=== PATIENT | male | born 1955 | race Caucasian/White ===

== ENCOUNTER 2018-02-07 19:01 | Inpatient (IN) | payer MEDICARE ==
[~2018-02-07] VITALS: Ht 174 cm; Wt 83.4 kg
[~2018-02-07 19:01] MED LIST: HYDR25TA6 PO; POTA20PA PO; SIMV40TA3 PO; WARF-36 PO
[2018-02-07] MEDS ORDERED: HYDR12.547 PO (19:29)
[2018-02-07] MEDS ORDERED: WARFARIN PO (19:29)
[2018-02-07] MEDS ORDERED: POTA10TA11 PO (19:30)
[2018-02-07] MEDS ORDERED: SPIRIVA PO (19:32)
[2018-02-07 19:58] LABS: MEAN CORPUSCULAR HEMOGLOBIN 30.5 pg (27.5-34.5); MEAN CORPUSCULAR HGB CONC 33.8 g/dL (33.2-36.2); MEAN CORPUSCULAR VOLUME 90.4 fL (81-97); MEAN PLATELET VOLUME 8.1 fL (7.4-10.4); PLATELET COUNT 234 x10^3/uL (130-400); RED BLOOD COUNT 4.49 x10^6/uL (4.38-5.82); RED CELL DISTRIBUTION WIDTH 16.2 % (9.4-14.8)
[2018-02-07] MEDS ORDERED: SODIUM CHLORIDE FLUSH 10ML SYR IVF ONE (20:00)
[2018-02-07] MEDS ORDERED: SODIUM CHLORIDE 0.9% 1,000ML IVBOLUS ONE ×2 (20:00→21:00)
[2018-02-07 20:10] LABS: ALANINE AMINOTRANSFERASE 46 U/L (12-78); ALBUMIN 2.9 g/dL (3.4-5.0); ANION GAP 11 mmol/L (5-15); CALCIUM 8.9 mg/dL (8.5-10.1); CHLORIDE 94 mmol/L (98-107); CREATININE 1.89 mg/dL (0.7-1.3)
[2018-02-07 20:12] LABS: ALKALINE PHOSPHATASE 89 U/L (45-117); BILIRUBIN,TOTAL 1.2 mg/dL (0.2-1.0); TOTAL PROTEIN 8.1 g/dL (6.4-8.2)
[2018-02-07 20:14] LABS: INTERNATIONAL NORMALIZED RATIO 2.6 (0.93-1.1); PROTHROMBIN TIME 26.5 Seconds (9.6-11.5)
[2018-02-07 20:52] LABS: MD YES
[2018-02-07 20:54] LABS: BANDS%(MANUAL) 2 % (0-7); EOS#(MANUAL) 0.15 x10^3/uL (0.0-0.4); EOS% (MANUAL) 1 % (1-7); LYMPH#(MANUAL) 1.04 x10^3/uL (1-3.4); LYMPHS% (MANUAL) 7 % (22-44); MONOS#(MANUAL) 0.75 x10^3/uL (0.3-2.7); MONOS% (MANUAL) 5 % (2-9); MYELOCYTES% (MANUAL) 2 % (0-0); SEG#(MANUAL) 12.37 x10^3/uL (1.8-6.8); SEGS% (MANUAL) 83 % (42-75)
[2018-02-07 20:55] LABS: <PLATELET ESTIMATE> ADEQUATE; <PLT MORPHOLOGY> NORMAL PLT MORPH; ANISOCYTOSIS 1+
[2018-02-07] MEDS ORDERED: VANCOMYCIN PER PHARMACY MC PRN (21:00)
[2018-02-07] MEDS ORDERED: AMPICILLIN/SULBACTAM 3 GM in SODIUM CHLORIDE 0.9% 100 ML IV ONE (21:00)
[2018-02-07] MEDS ORDERED: VANCOMYCIN 1,600 MG in SODIUM CHLORIDE 0.9% 250 ML IV ONE (21:00)
[2018-02-07 21:20] LABS: MICROSCOPIC INDICATED
[2018-02-07 21:22] LABS: CULTURE INDICATED? NO
[2018-02-07] MEDS ORDERED: POTASSIUM CHLORIDE 20 MEQ TAB.ER.PRT PO ONE (21:30)
[2018-02-07] MEDS ORDERED: POTASSIUM CHLORIDE 20 MEQ TAB.ER.PRT ONE (22:04)
[2018-02-07] MEDS ORDERED: PHARMACOKINETIC MONITORING MC PRN (22:30)
[2018-02-07] MEDS ORDERED: LABETALOL 5MG/ML, 20ML IVPush PRN (22:30)
[2018-02-07] MEDS ORDERED: BISACODYL 10 MG SUPP PR PRN (22:30)
[2018-02-07] MEDS ORDERED: DOCUSATE 100 MG CAPSULE PO PRN (22:30)
[2018-02-07] MEDS ORDERED: PHARMACOKINETIC CONSULTATION MC ONE (22:30)
[2018-02-07] MEDS ORDERED: ONDANSETRON ODT 4 MG PO PRN (22:30)
[2018-02-07] MEDS ORDERED: ONDANSETRON 2MG/ML, 2ML IVPush PRN (22:30)
[2018-02-07] MEDS ORDERED: ACETAMINOPHEN 325 MG TABLET PO PRN (22:30)
[2018-02-07 22:39] VITALS: BP 120/73
[2018-02-07 23:24] LABS: HCT (SEDRATE) 38.7 % (39.2-51.8)
[2018-02-07] MEDS ORDERED: WARFARIN 2 MG TABLET PO-COUM ONE (23:30)
[2018-02-07] MEDS: SODIUM CHLORIDE 0.9% 1,000 ML IV SCH (23:36)
[2018-02-07 23:51] VITALS: BP 123/68
[2018-02-08] MEDS: HYDROcodone/APAP 5/325 TABLET PO PRN ×2 (00:34→01:51)
[2018-02-08 00:36] VITALS: BP 123/68
[2018-02-08] MEDS ORDERED: METOPROLOL 1 MG/ML, 5ML IVPush PRN (01:30)
[2018-02-08] MEDS: AMPICILLIN/SULBACTAM 3 GM in SODIUM CHLORIDE 0.9% 100 ML IV SCH ×3 (05:21→21:56)
[2018-02-08 05:41] LABS: MEAN CORPUSCULAR HEMOGLOBIN 30.5 pg (27.5-34.5); MEAN CORPUSCULAR HGB CONC 33.7 g/dL (33.2-36.2); MEAN CORPUSCULAR VOLUME 90.5 fL (81-97); MEAN PLATELET VOLUME 8.3 fL (7.4-10.4); PLATELET COUNT 223 x10^3/uL (130-400); RED BLOOD COUNT 4.57 x10^6/uL (4.38-5.82); RED CELL DISTRIBUTION WIDTH 15.9 % (9.4-14.8)
[2018-02-08 05:48] LABS: CHLORIDE 101 mmol/L (98-107)
[2018-02-08 06:00] LABS: ANION GAP 11 mmol/L (5-15); CALCIUM 8.3 mg/dL (8.5-10.1); CHOL/HDL RATIO 7.8; CHOLESTEROL, TOTAL 78 mg/dL (140-239); CREATININE 1.55 mg/dL (0.7-1.3); HDL CHOL % 13 % (26-37); HDL CHOLESTEROL (DIRECT) 10 mg/dL (40-60); LDL CHOLESTEROL,CALCULATED 38 mg/dL (54-169); LDL/HDL RATIO 3.8 (0.5-3.0); TRIGLYCERIDES 148 mg/dL (50-200); VLDL CHOLESTEROL 30 mg/dL (0-25)
[2018-02-08 06:13] LABS: INTERNATIONAL NORMALIZED RATIO 3.02 (0.93-1.1); PROTHROMBIN TIME 30.7 Seconds (9.6-11.5)
[2018-02-08 06:23] LABS: BASOPHILS # (AUTO) 0.05 x10^3/uL (0-0.1); BASOPHILS % (AUTO) 0 % (0-1); EOSINOPHILS # (AUTO) 0.02 x10^3/uL (0-0.4); EOSINOPHILS % (AUTO) 0 % (1-7); LYMPHOCYTES # (AUTO) 1.08 x10^3/uL (1-3.4); LYMPHOCYTES % (AUTO) 7 % (22-44); MD SCAN; MONOCYTES # (AUTO) 1.09 x10^3/uL (0.2-0.8); MONOCYTES % (AUTO) 7 % (2-9); NEUTROPHILS % (AUTO) 86 % (42-75)
[2018-02-08 07:49] VITALS: BP 102/66
[2018-02-08] MEDS ORDERED: HYDROCHLOROTHIAZIDE 25 MG TABLET PO SCH (09:00)
[2018-02-08] MEDS: POTASSIUM CHLORIDE 10 MEQ TABLET.ER PO SCH (09:42)
[2018-02-08] MEDS: POTASSIUM CHLORIDE 20 MEQ TAB.ER.PRT PO SCH ×2 (09:42→12:45)
[2018-02-08] MEDS: SENNA/DOCUSATE TABLET PO SCH (09:43)
[2018-02-08] MEDS: IPRATROPIUM 0.5 MG/2.5 ML INHA NPPB SCH ×2 (11:30→14:45)
[2018-02-08] MEDS: SODIUM CHLORIDE 0.9% 1,000 ML IV SCH ×2 (12:39→23:33)
[2018-02-08 13:57] VITALS: BP 98/62
[2018-02-08 14:06] VITALS: BP 96/59
[2018-02-08] MEDS ORDERED: ALBUTEROL SULFATE 2.5MG/0.5ML ONE (14:50)
[2018-02-08] MEDS ORDERED: WARFARIN 3 MG TABLET PO-COUM ONE (18:00)
[2018-02-08 19:32] VITALS: BP 100/65
[2018-02-08] MEDS: ALBUTEROL/IPRATROPIUM 2.5MG/0.5MG, 3 ML NPPB SCH (20:20)
[2018-02-08] MEDS ORDERED: VANCOMYCIN PER PHARMACY MC PRN (21:00)
[2018-02-08] MEDS: SIMVASTATIN 40 MG TABLET PO SCH (21:56)
[2018-02-08] MEDS: VANCOMYCIN 1,600 MG in SODIUM CHLORIDE 0.9% 250 ML IV SCH (23:32)
[2018-02-09 01:02] VITALS: BP 110/56
[2018-02-09 04:59] LABS: MEAN CORPUSCULAR HEMOGLOBIN 30.6 pg (27.5-34.5); PLATELET COUNT 186 x10^3/uL (130-400); RED BLOOD COUNT 3.86 x10^6/uL (4.38-5.82); RED CELL DISTRIBUTION WIDTH 16.6 % (9.4-14.8)
[2018-02-09 05:07] LABS: ANION GAP 7 mmol/L (5-15); CHLORIDE 103 mmol/L (98-107)
[2018-02-09 05:08] LABS: CREATININE 1.24 mg/dL (0.7-1.3)
[2018-02-09 05:10] LABS: INTERNATIONAL NORMALIZED RATIO 3.49 (0.93-1.1); PROTHROMBIN TIME 35.4 Seconds (9.6-11.5)
[2018-02-09 06:03] LABS: BASOPHILS # (AUTO) 0.03 x10^3/uL (0-0.1); BASOPHILS % (AUTO) 0 % (0-1); EOSINOPHILS # (AUTO) 0.08 x10^3/uL (0-0.4); EOSINOPHILS % (AUTO) 1 % (1-7); LYMPHOCYTES # (AUTO) 0.94 x10^3/uL (1-3.4); LYMPHOCYTES % (AUTO) 6 % (22-44); MD SCAN; MONOCYTES # (AUTO) 0.88 x10^3/uL (0.2-0.8); MONOCYTES % (AUTO) 6 % (2-9); NEUTROPHILS # (AUTO) 13.99 x10^3/uL (1.8-6.8); NEUTROPHILS % (AUTO) 88 % (42-75)
[2018-02-09] MEDS: AMPICILLIN/SULBACTAM 3 GM in SODIUM CHLORIDE 0.9% 100 ML IV SCH ×3 (06:25→22:14)
[2018-02-09] MEDS: ALBUTEROL/IPRATROPIUM 2.5MG/0.5MG, 3 ML NPPB SCH ×4 (06:55→20:10)
[2018-02-09 07:28] VITALS: BP 103/64
[2018-02-09] MEDS ORDERED: VANCOMYCIN 1,600 MG in SODIUM CHLORIDE 0.9% 250 ML IV SCH (09:00)
[2018-02-09] MEDS ORDERED: NEUTRA PHOS K 250 MG TABLET PO SCH (09:00)
[2018-02-09] MEDS: SENNA/DOCUSATE TABLET PO SCH (09:36)
[2018-02-09] MEDS: NEUTRA PHOS K 250 MG TABLET PO SCH ×3 (09:36→20:40)
[2018-02-09] MEDS: POTASSIUM CHLORIDE 10 MEQ TABLET.ER PO SCH (09:36)
[2018-02-09 12:02] VITALS: BP 97/56
[2018-02-09] MEDS ORDERED: WARFARIN 1 MG TABLET PO-COUM ONE (18:00)
[2018-02-09 20:18] VITALS: BP 107/62
[2018-02-09] MEDS: SIMVASTATIN 40 MG TABLET PO SCH (20:40)
[2018-02-09] MEDS: VANCOMYCIN 1,600 MG in SODIUM CHLORIDE 0.9% 250 ML IV SCH (23:19)
[2018-02-10 00:46] VITALS: BP 123/75
[2018-02-10 05:35] LABS: ANION GAP 9 mmol/L (5-15); CALCIUM 8.4 mg/dL (8.5-10.1); CHLORIDE 103 mmol/L (98-107)
[2018-02-10 05:36] LABS: CREATININE 1.01 mg/dL (0.7-1.3)
[2018-02-10 05:37] LABS: INTERNATIONAL NORMALIZED RATIO 4.86 (0.93-1.1); MEAN CORPUSCULAR HEMOGLOBIN 30.5 pg (27.5-34.5); MEAN CORPUSCULAR HGB CONC 34.1 g/dL (33.2-36.2); MEAN CORPUSCULAR VOLUME 89.4 fL (81-97); MEAN PLATELET VOLUME 8.6 fL (7.4-10.4); PLATELET COUNT 240 x10^3/uL (130-400); RED BLOOD COUNT 4.16 x10^6/uL (4.38-5.82); RED CELL DISTRIBUTION WIDTH 16.6 % (9.4-14.8)
[2018-02-10] MEDS: AMPICILLIN/SULBACTAM 3 GM in SODIUM CHLORIDE 0.9% 100 ML IV SCH ×3 (05:39→21:57)
[2018-02-10 06:10] LABS: BASOPHILS # (AUTO) 0.03 x10^3/uL (0-0.1); BASOPHILS % (AUTO) 0 % (0-1); EOSINOPHILS # (AUTO) 0.16 x10^3/uL (0-0.4); EOSINOPHILS % (AUTO) 1 % (1-7); LYMPHOCYTES # (AUTO) 1.24 x10^3/uL (1-3.4); LYMPHOCYTES % (AUTO) 8 % (22-44); MD SCAN; MONOCYTES # (AUTO) 0.95 x10^3/uL (0.2-0.8); MONOCYTES % (AUTO) 6 % (2-9); NEUTROPHILS % (AUTO) 85 % (42-75)
[2018-02-10] MEDS: ALBUTEROL/IPRATROPIUM 2.5MG/0.5MG, 3 ML NPPB SCH ×4 (07:00→19:35)
[2018-02-10 07:18] VITALS: BP 143/86
[2018-02-10] MEDS ORDERED: HOLD COUMADIN MC PRN (08:00)
[2018-02-10] MEDS: POTASSIUM CHLORIDE 10 MEQ TABLET.ER PO SCH (09:38)
[2018-02-10] MEDS: SENNA/DOCUSATE TABLET PO SCH (09:39)
[2018-02-10] MEDS: VANCOMYCIN 1,600 MG in SODIUM CHLORIDE 0.9% 250 ML IV SCH ×2 (09:41→22:54)
[2018-02-10 12:33] VITALS: BP 123/74
[2018-02-10 18:36] VITALS: BP 131/80
[2018-02-10] MEDS: SIMVASTATIN 40 MG TABLET PO SCH (20:19)
[2018-02-11 02:59] VITALS: BP 120/76
[2018-02-11 05:21] LABS: MEAN CORPUSCULAR HEMOGLOBIN 30.4 pg (27.5-34.5); MEAN CORPUSCULAR HGB CONC 34.1 g/dL (33.2-36.2); MEAN CORPUSCULAR VOLUME 89.3 fL (81-97); MEAN PLATELET VOLUME 8.1 fL (7.4-10.4); PLATELET COUNT 298 x10^3/uL (130-400); RED BLOOD COUNT 3.86 x10^6/uL (4.38-5.82); RED CELL DISTRIBUTION WIDTH 16.8 % (9.4-14.8)
[2018-02-11 05:23] LABS: ANION GAP 8 mmol/L (5-15); CALCIUM 8.4 mg/dL (8.5-10.1); CHLORIDE 107 mmol/L (98-107); CREATININE 0.99 mg/dL (0.7-1.3)
[2018-02-11 05:36] LABS: INTERNATIONAL NORMALIZED RATIO 5.15 (0.93-1.1); PROTHROMBIN TIME 51.9 Seconds (9.6-11.5)
[2018-02-11 05:43] LABS: MD YES
[2018-02-11 05:45] LABS: EOS#(MANUAL) 0.67 x10^3/uL (0.0-0.4); EOS% (MANUAL) 5 % (1-7); LYMPH#(MANUAL) 1.61 x10^3/uL (1-3.4); LYMPHS% (MANUAL) 12 % (22-44); METAMYELOCYTES# (MANUAL) 0.13 x10^3/uL (0-0); METAMYELOCYTES% (MANUAL) 1 % (0-1); MONOS#(MANUAL) 0.27 x10^3/uL (0.3-2.7); MONOS% (MANUAL) 2 % (2-9); SEG#(MANUAL) 10.72 x10^3/uL (1.8-6.8); SEGS% (MANUAL) 80 % (42-75)
[2018-02-11 05:46] LABS: <PLATELET ESTIMATE> ADEQUATE; LARGE PLATELETS 1+; POLYCHROMASIA 1+; TOXIC GRAN 1+
[2018-02-11] MEDS: AMPICILLIN/SULBACTAM 3 GM in SODIUM CHLORIDE 0.9% 100 ML IV SCH ×2 (06:12→14:51)
[2018-02-11] MEDS: HYDROcodone/APAP 5/325 TABLET PO PRN (06:16)
[2018-02-11 07:00] VITALS: BP 115/68
[2018-02-11] MEDS: ALBUTEROL/IPRATROPIUM 2.5MG/0.5MG, 3 ML NPPB SCH (07:00)
[2018-02-11] MEDS ORDERED: POTASSIUM CHLORIDE 20 MEQ TAB.ER.PRT PO ONE (08:30)
[2018-02-11] MEDS: SENNA/DOCUSATE TABLET PO SCH (09:00)
[2018-02-11] MEDS: POTASSIUM CHLORIDE 10 MEQ TABLET.ER PO SCH (09:11)
[2018-02-11] MEDS: VANCOMYCIN 1,600 MG in SODIUM CHLORIDE 0.9% 250 ML IV SCH (09:22)
[2018-02-11] MEDS ORDERED: VANCOMYCIN 1,600 MG in SODIUM CHLORIDE 0.9% 250 ML IV SCH (12:00)
[2018-02-11 12:55] VITALS: BP 129/82
[2018-02-11] MEDS ORDERED: SULF1TAB24 PO (13:39)
[2018-02-11] MEDS ORDERED: AMOX1TAB64 PO (13:39)
[2018-02-11] MEDS ORDERED: ALBUTEROL/IPRATROPIUM 2.5MG/0.5MG, 3 ML NPPB SCH (21:00)
== END 2018-02-11 16:15 | disposition home or self-care (01) | DRG 871 ==
LOC: ED 20:01 → EDIP 21:30 → 4EST 22:19 → DCLOUNGE 02-11 16:08
PROVIDERS: ADMIT Hospitalist; ATTEND Hospitalist
DX: A41.9 Sepsis, unspecified organism (principal); N17.0 Acute kidney failure with tubular necrosis; L03.115 Cellulitis of right lower limb; D68.59 Other primary thrombophilia; E87.1 Hypo-osmolality and hyponatremia; E87.2 Acidosis; R17 Unspecified jaundice; E83.39 Other disorders of phosphorus metabolism; R65.20 Severe sepsis without septic shock; E78.5 Hyperlipidemia, unspecified; E86.0 Dehydration; E86.1 Hypovolemia; E87.6 Hypokalemia; I10 Essential (primary) hypertension; I87.2 Venous insufficiency (chronic) (peripheral); I87.8 Other specified disorders of veins; J44.9 Chronic obstructive pulmonary disease, unspecified; K44.9 Diaphragmatic hernia without obstruction or gangrene; Z86.711 Personal history of pulmonary embolism; Z86.718 Personal history of other venous thrombosis and embolism; Z90.3 Acquired absence of stomach [part of]; Z79.01 Long term (current) use of anticoagulants; Z87.891 Personal history of nicotine dependence
CPT/HCPCS: 36415; 71045; 80048; 80053; 80061; 80202; 81001; 83605; 83735; 84100; 84145; 85025; 85610; 85651; 85730; 87040; 93005; 93922; 94640; 96365; 99291; J0295; J3370; J7620; J7644; J7030; J7050

== ENCOUNTER 2019-02-06 08:10 | Outpatient (CLI) | payer MEDICARE ==
[~2019-02-06 08:10] MED LIST changes: +AMOX1TAB64 PO; +HYDR12.547 PO; +POTA10TA11 PO; -POTA20PA PO; +POTA20PA31 PO; +SPIRIVA PO; +SULF1TAB24 PO; +WARFARIN PO
== END 2019-02-06 23:59 | disposition home or self-care (01) ==
LOC: CVU 08:10
PROVIDERS: ATTEND Family Medicine
DX: I70.203 Unspecified atherosclerosis of native arteries of extremities, bilateral legs (principal); I73.9 Peripheral vascular disease, unspecified
CPT/HCPCS: 93922; 93925